=== PATIENT | male | born 1980 ===

== ENCOUNTER 2017-03-13 10:47 | Emergency (ER) | payer SELFPAY ==
[2017-03-13 11:03] VITALS: O2SAT 98
--- NOTE | 2017-03-13 11:41 | C.PDOC ---
History Of Present Illness 36 year old male presents to the ED for evaluation of congestion, a persistent cough, and decreased bilateral hearing which began around 1 month ago. Patient attributes his symptoms to the presence of mold at his home, which he got rid of two days ago. Patient has not seen his PMD or taken any medicine for his symptoms. He denies fever, chills, shortness of breath, and chest pain. Time Seen by Provider: 03/13/17 11:05 Chief Complaint (Nursing): ENT Problem History Per: Patient History/Exam Limitations: no limitations Onset/Duration Of Symptoms: Persistent, Other (1 month ) Current Symptoms Are (Timing): Still Present Location Of Pain: Ear(s) Sick Contacts (Context): None Associated Symptoms: Cough. denies: Fever, Chills Ear Symptoms: Bilateral: Decreased Hearing Additional History Per: Patient Past Medical History Reviewed: Historical Data, Nursing Documentation, Vital Signs Vital Signs: Last Vital Signs Temp 98 F 03/13/17 12:28 Pulse 65 03/13/17 12:28 Resp 20 03/13/17 12:28 BP 117/81 03/13/17 12:28 Pulse Ox 98 03/13/17 15:09 - Medical History PMH: No Chronic Diseases Family History: States: Unknown Family Hx Review Of Systems Constitutional: Negative for: Fever, Chills ENT: Positive for: Nose Congestion, Other (decreased hearing bilaterally ) Cardiovascular: Negative for: Chest Pain Respiratory: Positive for: Cough. Negative for: Shortness of Breath Physical Exam - Physical Exam Appears: Non-toxic, No Acute Distress Skin: Normal Color, Warm, Dry Head: Atraumatic, Normacephalic Eye(s): bilateral: Normal Inspection Ear(s): Bilateral: Normal Nose: Normal, No Discharge Oral Mucosa: Moist Throat: Normal, No Erythema, No Exudate Neck: Supple Chest: Symmetrical, No Deformity Cardiovascular: Rhythm Regular, No Murmur Respiratory: Normal Breath Sounds, No Rales, No Rhonchi, No Wheezing Extremity: Normal ROM, Capillary Refill (less than 2 seconds ) Neurological/Psych: Oriented x3, Normal Speech, Normal Cognition Gait: Steady ED Course And Treatment O2 Sat by Pulse Oximetry: 98 (on RA) Pulse Ox Interpretation: Normal - Other Rad CXR X-Ray: Interpreted by Me, Viewed By Me, Read By Radiologist Interpretation: HISTORY: cough x 1. COMPARISON: None available. TECHNIQUE: Chest PA and lateral. FINDINGS: LUNGS: No focal consolidation. Please note that chest x-ray has limited sensitivity for the detection of pulmonary masses. PLEURA: No significant pleural effusion identified. No definite pneumothorax . CARDIOVASCULAR: The cardiomediastinal silhouette appears within normal limits of size. OSSEOUS STRUCTURES: No acute osseous abnormality identified. VISUALIZED UPPER ABDOMEN: Unremarkable. OTHER FINDINGS: None. IMPRESSION: No focal consolidation, significant pleural effusion, or definite pneumothorax identified. Progress Note: CXR ordered and reviewed. On reassessment, patient is resting comfortably, showing no signs of distress, remains afebrile and is stable for discharge. Patient was found to have elevated blood pressure in the ED. Discussed risks of elevated blood pressure with patient and advised to follow up with clinic regarding this issue. Patient is advised to follow up with his PMD within 1-3 days for further evaluation. Reassessment Condition: Unchanged Disposition - Disposition Disposition: HOME/ ROUTINE Disposition Time: 11:39 Condition: STABLE Additional Instructions: Follow up with primary medical doctor in 1-3 days without fail for further evaluation. Take medications as prescribed. Return to the emergency department at any time if symptoms persist or worsen. Prescriptions: Guaifen/Dextromethorphan/PE [Mucinex Fast-Max Congest-Cough] 1 each PO Q6 #20 tablet Instructions: Upper Respiratory Infection (ED) Forms: [facility] (Iranian) - Clinical Impression Clinical Impression: Congestion of upper airway - PA / ASSOCIATE SPA DIRECTOR / Resident Statement MD/DO has reviewed & agrees with the documentation as recorded. - Scribe Statement The provider has reviewed the documentation as recorded by the Scribe (Екатерина Olvera) All medical record entries made by the Scribe were at my direction and personally dictated by me. I have reviewed the chart and agree that the record accurately reflects my personal performance of the history, physical exam, medical decision making, and the department course for this patient. I have also personally directed, reviewed, and agree with the discharge instructions and disposition.
[2017-03-13 12:29] VITALS: BP 117/81; PULSE 65; RESP 20; TEMP 98
--- NOTE | 2017-03-13 14:19 | RAD ---
HISTORY: cough x 1 COMPARISON: None available. TECHNIQUE: Chest PA and lateral FINDINGS: LUNGS: No focal consolidation. Please note that chest x-ray has limited sensitivity for the detection of pulmonary masses. PLEURA: No significant pleural effusion identified. No definite pneumothorax . CARDIOVASCULAR: The cardiomediastinal silhouette appears within normal limits of size. OSSEOUS STRUCTURES: No acute osseous abnormality identified. VISUALIZED UPPER ABDOMEN: Unremarkable. OTHER FINDINGS: None. IMPRESSION: No focal consolidation, significant pleural effusion, or definite pneumothorax identified.
== END 2017-03-13 12:28 | disposition home or self-care (01) ==
LOC: C.ER 10:47
DX: R09.81 Nasal congestion (principal)